=== PATIENT | male | born 1950 | race Caucasian/White ===

== ENCOUNTER 2024-07-26 04:59 | Observation (INO) | payer MEDICARE ==
[2024-07-26] MEDS ORDERED: Senokot S 8.6-50 MG TAB PO PRN (05:38)
[2024-07-26] MEDS ORDERED: Guaifenesin DM 100-10/5 ML UDCUP PO PRN (05:38)
[2024-07-26] MEDS ORDERED: Ondansetron PF 4 MG/2 ML Vial IVP PRN (05:38)
[2024-07-26] MEDS ORDERED: Zolpidem Tartrate 5 MG TAB PO PRN (05:38)
[2024-07-26] MEDS ORDERED: Calcium Carbonate 500 MG ChewTAB PO PRN (05:38)
[2024-07-26] MEDS ORDERED: dilTIAZem 125 MG in Sodium Chloride 0.9% 100 ML IVPB SCH (06:00)
[2024-07-26] MEDS: Carvedilol 25 MG TAB PO SCH (06:05)
[2024-07-26 06:21] LABS: Magnesium 2.3 mg/dL (1.6-2.6)
[2024-07-26 06:27] LABS: Troponin I Less than 0.010 ng/mL (< 0.028)
[2024-07-26] MEDS: Acetaminophen 325 MG TAB PO SCH (06:57)
[2024-07-26] MEDS: Ipratropium/Albuterol 3 ML NEB NEB SCH (07:09)
[2024-07-26] MEDS: Carvedilol 12.5 MG TAB PO SCH (07:23)
[2024-07-26 08:18] VITALS: BMI 34.0
[2024-07-26] MEDS: Famotidine 20 MG TAB PO SCH (08:38)
[2024-07-26] MEDS: Docusate 100 MG CAP PO SCH (08:38)
[2024-07-26] MEDS: Multivitamin W/ Minerals 1 TAB PO SCH (08:39)
[2024-07-26] MEDS: Multivitamin w/Zinc Stress 1 TAB PO SCH (08:39)
[2024-07-26] MEDS: Acidophilus Lactiobac CAPSULE PO SCH (08:40)
[2024-07-26] MEDS: CO Q-10 CAPSULE 50 MG PO SCH (08:41)
[2024-07-26] MEDS: Thiamine 100 MG TAB PO SCH (08:41)
[2024-07-26] MEDS: Ferrous Sulfate 325 MG TAB PO SCH (08:41)
[2024-07-26] MEDS: Sacubitril 24MG/Valsartan 26 MG TAB PO SCH (08:50)
[2024-07-26] MEDS: FLU (Fluad Triv) TS24-25 (65UP)/MF59C/PF 45 MCG/0.5 ML Syringe IM ONE (08:55)
[2024-07-26] MEDS ORDERED: Non-Formulary Medication 1 EACH (Magnesium Glycinate [Mag Glycinate] 100 MG Tablet) PO SCH (09:00)
[2024-07-26] MEDS: Enoxaparin 40 MG (0.4 mL) SYRINGE SC SCH (10:31)
[2024-07-26 12:57] VITALS: TEMP 98
[2024-07-26 16:15] VITALS: BP 119/76
[2024-07-26] MEDS ORDERED: Carvedilol 25 MG TAB PO SCH (17:00)
[2024-07-26] MEDS ORDERED: Rosuvastatin 10 MG TAB PO SCH (21:00)
[2024-07-26] MEDS ORDERED: Aspirin 81 mg Enteric Coated Tablet PO SCH (21:00)
[2024-07-26] MEDS ORDERED: Levothyroxine Sodium 75 MCG TAB PO SCH (21:00)
== END 2024-07-26 16:55 | disposition home or self-care (01) ==
LOC: CSHTELE 05:28 → INTOOBSV 05:28
PROVIDERS: ADMIT Student in an Organized Health Care Education/Training Program; ATTEND Family Medicine
PROC: B24BZZZ Ultrasonography of Heart with Aorta (ICD-10-PCS; principal; 2024-07-26)
DX: I48.0 Paroxysmal atrial fibrillation (principal); I11.0 Hypertensive heart disease with heart failure; I50.42 Chronic combined systolic (congestive) and diastolic (congestive) heart failure; I25.118 Atherosclerotic heart disease of native coronary artery with other forms of angina pectoris; E03.9 Hypothyroidism, unspecified; E78.2 Mixed hyperlipidemia; E66.9 Obesity, unspecified; M19.90 Unspecified osteoarthritis, unspecified site; J45.909 Unspecified asthma, uncomplicated; K21.9 Gastro-esophageal reflux disease without esophagitis; G47.33 Obstructive sleep apnea (adult) (pediatric); R73.9 Hyperglycemia, unspecified; Z68.34 Body mass index [BMI] 34.0-34.9, adult; Z90.89 Acquired absence of other organs; Z90.49 Acquired absence of other specified parts of digestive tract; Z90.79 Acquired absence of other genital organ(s); Z98.52 Vasectomy status; Z98.890 Other specified postprocedural states; Z95.818 Presence of other cardiac implants and grafts; Z96.641 Presence of right artificial hip joint; Z88.5 Allergy status to narcotic agent; Z88.8 Allergy status to other drugs, medicaments and biological substances; Z79.890 Hormone replacement therapy; Z79.82 Long term (current) use of aspirin; Z79.51 Long term (current) use of inhaled steroids; Z79.899 Other long term (current) drug therapy; I47.20 Ventricular tachycardia, unspecified; R07.89 Other chest pain
CPT/HCPCS: 71045; 83735; 83880; 84484 ×2; 93005; 93306; 94640; 96365; 96366; 96374; 99285; G0378; J1650; 36415; 80053; 84443; 85025; 93010; J7620